=== PATIENT | female | born 1955 | race Caucasian/White ===

== ENCOUNTER 2017-03-29 19:15 | Inpatient (IN) | payer OTHER, MEDICAID ==
[~2017-03-29] VITALS: Ht 170.2 cm; Wt 77.6 kg
[2017-03-29] MEDS ORDERED: KETOROLAC 30 MG/1 ML IVPush ONE (20:00)
[2017-03-29] MEDS ORDERED: SODIUM CHLORIDE 0.9% 1,000ML IVBOLUS ONE ×2 (20:00→23:30)
[2017-03-29] MEDS ORDERED: SODIUM CHLORIDE FLUSH 10ML SYR IVF ONE (20:00)
[2017-03-29 20:21] LABS: HEMATOCRIT 40.1 % (34.6-47.8); HEMOGLOBIN 13.1 g/dL (11.7-16.4); WHITE BLOOD COUNT 21.1 x10^3/uL (3.4-10)
[2017-03-29 20:26] LABS: DIFF TOTAL CELLS COUNTED 100 CELL DIFF
[2017-03-29 20:33] LABS: BLOOD UREA NITROGEN 13 mg/dL (7-18)
[2017-03-29] MEDS ORDERED: KETOROLAC 30 MG/1 ML ONE (21:02)
[2017-03-29 21:06] LABS: ANISOCYTOSIS 1+
[2017-03-29 21:07] LABS: POLYCHROMASIA 1+; VERIFY COUNTS? YES
[2017-03-29] MEDS ORDERED: CLINDAMYCIN PMX 600MG/50ML 50 ML IV ONE (21:30)
[2017-03-29] MEDS ORDERED: CLINDAMYCIN PMX 600MG/50ML 50 ML ONE (21:32)
[2017-03-29] MEDS ORDERED: ATOR20TA PO (21:57)
[2017-03-29] MEDS ORDERED: ESOM40CA PO (21:57)
[2017-03-29] MEDS ORDERED: OXYC15TA PO (21:57)
[2017-03-29] MEDS ORDERED: AMPH30TA2 PO (21:57)
[2017-03-29] MEDS ORDERED: GLIP10TA13 PO (21:57)
[2017-03-29] MEDS ORDERED: HYDR-3307 PO (21:57)
[2017-03-29] MEDS ORDERED: OXYB5TAB7 PO (21:57)
[2017-03-29] MEDS ORDERED: SITA100T PO (21:57)
[2017-03-29] MEDS ORDERED: SOLI10TA PO (21:57)
[2017-03-29] MEDS ORDERED: CANA300T PO (21:57)
[2017-03-29] MEDS: SODIUM CHLORIDE 0.9% 1,000 ML IV SCH (22:56)
[2017-03-29] MEDS ORDERED: morphine SULFATE 10 MG/ML, 1ML IVPush PRN (23:00)
[2017-03-29] MEDS ORDERED: VANCOMYCIN PER PHARMACY MC PRN (23:00)
[2017-03-29] MEDS ORDERED: ENALAPRILAT 1.25 MG/ML, 2ML IVPush PRN (23:00)
[2017-03-29] MEDS: INSULIN REGULAR 100 UNITS/ML, 3ML VIAL SQ-INSULIN SCH (23:00)
[2017-03-29] MEDS ORDERED: DOCUSATE 100 MG CAPSULE PO PRN (23:00)
[2017-03-29] MEDS ORDERED: ACETAMINOPHEN 325 MG TABLET PO PRN (23:00)
[2017-03-29] MEDS ORDERED: POLYETHYLENE GLYCOL 17 GM PACKET PO PRN (23:00)
[2017-03-29] MEDS ORDERED: ONDANSETRON 2MG/ML, 2ML IVPush PRN (23:00)
[2017-03-29] MEDS: LISINOPRIL 20 MG TABLET PO ONE (23:00)
[2017-03-29] MEDS ORDERED: ONDANSETRON ODT 4 MG PO PRN (23:00)
[2017-03-29] MEDS ORDERED: PHARMACOKINETIC MONITORING MC PRN (23:45)
[2017-03-29] MEDS ORDERED: PHARMACOKINETIC CONSULTATION MC ONE (23:45)
[2017-03-30] MEDS: ENOXAPARIN 40 MG/0.4 ML SQ SCH ×2 (00:23→23:34)
[2017-03-30] MEDS: PIPERACILLIN/TAZO/PMX 3.375GM 50 ML IV SCH ×5 (00:23→23:33)
[2017-03-30] MEDS: VANCOMYCIN 1,300 MG in SODIUM CHLORIDE 0.9% 250 ML IV SCH ×2 (00:46→18:38)
[2017-03-30 00:50] VITALS: BP 95/56
[2017-03-30 02:00] VITALS: BP 90/55
[2017-03-30] MEDS: LISINOPRIL 20 MG TABLET PO ONE (02:09)
[2017-03-30] MEDS: SIMVASTATIN 20 MG TABLET PO SCH ×2 (02:09→22:18)
[2017-03-30] MEDS: INSULIN REGULAR 100 UNITS/ML, 3ML VIAL SQ-INSULIN SCH ×5 (02:10→22:20)
[2017-03-30 05:18] LABS: HEMATOCRIT 34.3 % (34.6-47.8); HEMOGLOBIN 11.2 g/dL (11.7-16.4)
[2017-03-30 05:39] LABS: ASPARTATE AMINO TRANSFERASE 13 U/L (15-37); BLOOD UREA NITROGEN 12 mg/dL (7-18)
[2017-03-30] MEDS: ASPIRIN 81 MG TABLET EC PO SCH (05:47)
[2017-03-30 07:25] VITALS: BP 97/63
[2017-03-30] MEDS: OMEPRAZOLE 20 MG CAPSULE.DR PO SCH (08:21)
[2017-03-30] MEDS: OXYBUTYNIN CHLORIDE 5 MG TABLET PO SCH ×2 (08:22→22:19)
[2017-03-30] MEDS: SENNA/DOCUSATE TABLET PO SCH (08:22)
[2017-03-30] MEDS: SODIUM CHLORIDE 0.9% 1,000 ML IV SCH (10:30)
[2017-03-30 13:06] VITALS: BP 103/78
[2017-03-30] MEDS ORDERED: FUROSEMIDE 20 MG TABLET PO ONE (13:30)
[2017-03-30] MEDS ORDERED: POTASSIUM CHLORIDE 20 MEQ TAB.ER.PRT PO ONE (13:30)
[2017-03-30] MEDS: HYDROcodone/APAP 5/325 TABLET PO PRN (14:46)
[2017-03-30] MEDS: METHADONE 10 MG TABLET PO SCH ×2 (17:07→22:18)
[2017-03-30 20:00] VITALS: BP 99/63
[2017-03-31 02:00] VITALS: BP 125/66
[2017-03-31] MEDS: PIPERACILLIN/TAZO/PMX 3.375GM 50 ML IV SCH ×3 (05:44→20:54)
[2017-03-31] MEDS: ASPIRIN 81 MG TABLET EC PO SCH (05:44)
[2017-03-31] MEDS: INSULIN REGULAR 100 UNITS/ML, 3ML VIAL SQ-INSULIN SCH ×4 (07:00→20:54)
[2017-03-31 07:23] VITALS: BP 111/71
[2017-03-31 07:59] LABS: BLOOD UREA NITROGEN 12 mg/dL (7-18)
[2017-03-31 08:06] LABS: HEMATOCRIT 32.5 % (34.6-47.8); HEMOGLOBIN 10.6 g/dL (11.7-16.4); WHITE BLOOD COUNT 11.7 x10^3/uL (3.4-10)
[2017-03-31] MEDS ORDERED: FUROSEMIDE 10 MG/ML ORAL SOL PO SCH (09:00)
[2017-03-31] MEDS: OMEPRAZOLE 20 MG CAPSULE.DR PO SCH (09:21)
[2017-03-31] MEDS: SENNA/DOCUSATE TABLET PO SCH (09:21)
[2017-03-31] MEDS: OXYBUTYNIN CHLORIDE 5 MG TABLET PO SCH ×2 (09:21→20:53)
[2017-03-31] MEDS: METHADONE 10 MG TABLET PO SCH ×3 (09:22→20:53)
[2017-03-31] MEDS: FUROSEMIDE 40 MG TABLET PO SCH (11:36)
[2017-03-31] MEDS: VANCOMYCIN 1,300 MG in SODIUM CHLORIDE 0.9% 250 ML IV SCH ×2 (12:43→17:49)
[2017-03-31] MEDS: HYDROcodone/APAP 5/325 TABLET PO PRN (13:01)
[2017-03-31 13:42] VITALS: BP 118/78
[2017-03-31 20:24] VITALS: BP 111/70
[2017-03-31] MEDS: SIMVASTATIN 20 MG TABLET PO SCH (20:53)
[2017-03-31] MEDS: ENOXAPARIN 40 MG/0.4 ML SQ SCH (23:28)
[2017-04-01] MEDS: PIPERACILLIN/TAZO/PMX 3.375GM 50 ML IV SCH ×4 (01:56→20:50)
[2017-04-01 01:57] VITALS: BP 121/83
[2017-04-01] MEDS: INSULIN REGULAR 100 UNITS/ML, 3ML VIAL SQ-INSULIN SCH ×4 (07:00→20:51)
[2017-04-01 07:15] VITALS: BP 126/89
[2017-04-01 07:38] LABS: HEMATOCRIT 36.8 % (34.6-47.8); HEMOGLOBIN 12.1 g/dL (11.7-16.4); WHITE BLOOD COUNT 10.4 x10^3/uL (3.4-10)
[2017-04-01] MEDS: OXYBUTYNIN CHLORIDE 5 MG TABLET PO SCH ×2 (08:19→20:50)
[2017-04-01] MEDS: FUROSEMIDE 40 MG TABLET PO SCH (08:19)
[2017-04-01] MEDS: METHADONE 10 MG TABLET PO SCH ×3 (08:19→20:50)
[2017-04-01] MEDS: ASPIRIN 81 MG TABLET EC PO SCH (08:19)
[2017-04-01] MEDS: POTASSIUM CHLORIDE 10 MEQ TABLET.ER PO SCH (08:20)
[2017-04-01] MEDS: SENNA/DOCUSATE TABLET PO SCH (08:20)
[2017-04-01] MEDS: OMEPRAZOLE 20 MG CAPSULE.DR PO SCH (08:20)
[2017-04-01] MEDS: FUROSEMIDE 10 MG/ML ORAL SOL PO ONE ×2 (13:30→14:06)
[2017-04-01] MEDS: VANCOMYCIN 1,300 MG in SODIUM CHLORIDE 0.9% 250 ML IV SCH (13:41)
[2017-04-01] MEDS ORDERED: FUROSEMIDE 20 MG/2 ML ONE (13:50)
[2017-04-01 14:01] VITALS: BP 122/86
[2017-04-01] MEDS ORDERED: FUROSEMIDE 20 MG/2 ML IV ONE (15:30)
[2017-04-01 20:33] VITALS: BP 125/82
[2017-04-01] MEDS: SIMVASTATIN 20 MG TABLET PO SCH (20:50)
[2017-04-01] MEDS: ENOXAPARIN 40 MG/0.4 ML SQ SCH (23:44)
[2017-04-02 01:21] VITALS: BP 103/66
[2017-04-02] MEDS: PIPERACILLIN/TAZO/PMX 3.375GM 50 ML IV SCH ×2 (02:12→08:42)
[2017-04-02] MEDS: VANCOMYCIN 1,300 MG in SODIUM CHLORIDE 0.9% 250 ML IV SCH (06:17)
[2017-04-02] MEDS: ASPIRIN 81 MG TABLET EC PO SCH (06:17)
[2017-04-02] MEDS: INSULIN REGULAR 100 UNITS/ML, 3ML VIAL SQ-INSULIN SCH ×2 (07:00→11:33)
[2017-04-02 07:43] LABS: HEMOGLOBIN 13.3 g/dL (11.7-16.4); WHITE BLOOD COUNT 8.9 x10^3/uL (3.4-10)
[2017-04-02 07:48] VITALS: BP 148/83
[2017-04-02] MEDS: OMEPRAZOLE 20 MG CAPSULE.DR PO SCH (08:42)
[2017-04-02] MEDS: OXYBUTYNIN CHLORIDE 5 MG TABLET PO SCH (08:42)
[2017-04-02] MEDS: POTASSIUM CHLORIDE 10 MEQ TABLET.ER PO SCH (08:42)
[2017-04-02] MEDS: METHADONE 10 MG TABLET PO SCH (08:44)
[2017-04-02] MEDS: SENNA/DOCUSATE TABLET PO SCH (08:45)
[2017-04-02] MEDS ORDERED: FUROSEMIDE 20 MG TABLET PO SCH (09:00)
[2017-04-02 14:30] VITALS: BP 101/68
[2017-04-02] MEDS ORDERED: OMNIPAQUE 350 MG/ML, 100ML BOTTLE ONE (15:24)
[2017-04-02] MEDS ORDERED: AMOXICILLIN 500 MG CAPSULE PO SCH (15:30)
[2017-04-02] MEDS ORDERED: SULFAMETH./TRIMETHOPRIM DS 800MG/160MG TABLET PO SCH (21:00)
== END 2017-04-02 18:00 | disposition home or self-care (01) | DRG 872 ==
LOC: ED 22:57 → EDIP 23:00 → 4WST 23:37
PROVIDERS: ADMIT Family Medicine; ATTEND Family Medicine
DX: A41.9 Sepsis, unspecified organism (principal); E11.65 Type 2 diabetes mellitus with hyperglycemia; I10 Essential (primary) hypertension; L03.115 Cellulitis of right lower limb; L03.116 Cellulitis of left lower limb; E87.1 Hypo-osmolality and hyponatremia; E44.1 Mild protein-calorie malnutrition; E78.5 Hyperlipidemia, unspecified; F17.200 Nicotine dependence, unspecified, uncomplicated; I65.29 Occlusion and stenosis of unspecified carotid artery; L30.9 Dermatitis, unspecified; K21.9 Gastro-esophageal reflux disease without esophagitis; N32.81 Overactive bladder; Z86.73 Personal history of transient ischemic attack (TIA), and cerebral infarction without residual deficits; Z79.899 Other long term (current) drug therapy; Z68.26 Body mass index [BMI] 26.0-26.9, adult
CPT/HCPCS: 36415; 71010; 80048; 80053; 80202; 81003; 82040; 82962; 83036; 83605; 83735; 84100; 84145; 85025; 87040; 93005; 93306; 93880; 93970; 96365; 96375; J1650; J1815; J1885; J2543; J3370; Q9967; J1940; J7030; J7050

== ENCOUNTER → 2018-06-17 | Outpatient (CLI) | payer OTHER, MEDICAID ==
[~2018-06-17] MED LIST: AMPH30TA2 PO; ATOR20TA PO; CANA300T PO; CIPR500T87 PO; EMPA25TA PO; ESOM40CA PO; GLIP10TA13 PO; HYDR-3307 PO; INSU100I13 SQ; LISI-170 PO; METH-356 PO; METR250T PO; OXYB5TAB7 PO; OXYC15TA PO; SITA100T PO; SOLI10TA2 PO
== END | disposition home or self-care (01) ==
LOC: CVU 14:37
PROVIDERS: ATTEND Surgery
DX: I65.23 Occlusion and stenosis of bilateral carotid arteries (principal); I10 Essential (primary) hypertension; E78.5 Hyperlipidemia, unspecified; E11.9 Type 2 diabetes mellitus without complications; F17.210 Nicotine dependence, cigarettes, uncomplicated
CPT/HCPCS: 93880